=== PATIENT | male | born 1950 | race Caucasian/White ===

== ENCOUNTER 2020-09-20 09:08 | Observation (INO) | payer MEDICARE, SELFPAY ==
[2013-07-17 08:42] VITALS: BMI 37.3
[2020-09-20] VITALS (8 sets, daily range): BP systolic 125–152; BP diastolic 76–85; PULSE 66–84; RESP 16–20; TEMP 36.7–37; O2SAT 94–99; BMI 107.5; BMI 38.2
--- NOTE | 2020-09-20 07:50 | EKG12_ITS ---
Test Reason : IRREGULAR HR Blood Pressure : / mmHG Vent. Rate : 060 BPM Atrial Rate : 060 BPM P-R Int : 228 ms QRS Dur : 076 ms QT Int : 400 ms P-R-T Axes : 074 030 042 degrees QTc Int : 400 ms Sinus rhythm with 1st degree A-V block with Premature atrial complexes Otherwise normal ECG Confirmed by MICHELLE HODGE, JOHN ([id number]), rewrite editor LFAKITO CRUZ ([id number] on 09/22/2020 11:47:37 AM Referred By: RADHA Confirmed By:JOHN MARTINEZ MD
--- NOTE | 2020-09-20 09:21 | PCM.HP.STD ---
Problem List (1) Atypical chest discomfort Status: Acute (2) Diabetes mellitus type 2 in obese Status: Chronic (3) Hypertension Status: Chronic (4) Dyslipidemia Status: Chronic History of Present Illness Date of Admission: 09/20/20 Chief Complaint: Chest discomfort The patient is a 70 year old M is a direct admit from [facility] ED for chest discomfort. He describes chest discomfort as irregular heartbeat for last 2 weeks which is getting more frequent. Sometimes on standing up he feels dizzy. He denies change in the discomfort with regard to exertion or association with shortness of breath, syncope or fall. He describes chest discomfort as localized without radiation without precipitating, aggravating or relieving factor. No previous history of similar problem, heart disease or lung disease or stroke. 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 EKG tracing from pulmonary in ER shows PACs with compensatory pause. Twelve-lead EKG shows sinus rhythm with first-degree AV block with premature supraventricular complex at 67 bpm. SC interval 222 ms, QTC 405 ms. QRS 76 ms. High-sensitivity troponin negative. D-dimer thyroid 65 mildly elevated. CBC within normal limit. CMP within normal limit. Modified Wells criteria is 0 therefore PE unlikely. [] Past Medical History Past Medical History (Chronic Problems): Chronic Problems Diabetes mellitus type 2 in obese (Chronic) Hypertension (Chronic) Dyslipidemia (Chronic) Allergies No Known Allergies Allergy (Verified 07/10/13 10:09) Home Medications: Ambulatory Orders Medication Instructions Recorded Amlodipine [Norvasc] 10 mg PO DAILY 07/10/13 Ascorbic Acid [Vitamin C] 1,000 mg PO DAILY@0800 07/10/13 Atorvastatin Calcium [Lipitor] 20 mg PO QHS 07/10/13 Cosaminasu 2 tab PO BID 07/10/13 Flavoring Agent [Cinnamon] 1,000 mg PO DAILY 07/10/13 Folic Acid 1 mg PO BIDCM 07/10/13 Insulin Glargine [Lantus SoloStar 50 units SC QHS 07/10/13 Pen] Losartan Potassium [Cozaar] 100 mg PO DAILY 07/10/13 Methotrexate 15 mg PO Q7D 07/10/13 Multivitamins,Therapeutic 1 tablet PO DAILY 07/10/13 [Multivitamin] [place]-3 Fatty Acids/Fish Oil [Fish 1 each PO DAILY 07/10/13 Oil 1,000 mg Softgel] Tamsulosin HCl [Flomax] 0.4 mg PO DAILY 07/10/13 traMADol [Ultram (G)] 50 mg PO Q6H PRN PRN 07/10/13 Glimepiride [Amaryl] 4 mg PO BID 09/20/20 Magnesium 250 mg PO DAILY 09/20/20 Metformin HCl [Metformin HCl ER] 1,000 mg PO BID PRN PRN 09/20/20 Spironolactone [Aldactone] 25 mg PO DAILY 09/20/20 Smoking Status: Former smoker Tobacco Use: Cigarettes - *Family History Paternal History Items: - Maternal History Items: Heart Disease Sibling History Items: Heart Disease - 2 brothers of heart disease. Review of Systems Constitutional: Denies: Chills, Fever, Weight Change HEENT: Denies: Head Aches, Sinus Congestion, Sinus Drainage Cardiovascular: Reports: Chest Pressure, Palpitations. Denies: Chest Pain Respiratory: Denies: Cough, Shortness of breath at rest, Sputum production Gastrointestinal: Denies: Abdominal Pain, Nausea, Vomiting Genitourinary: Denies: Dysuria Musculoskeletal: Denies: Joint Pain, Joint Tenderness Skin: Denies: Rash, Wounds Neurological: Denies: Numbness, Tingling, Focal weakness Psychiatric: Denies: Anxiety, Depression, Homicidal Ideations, Suicidal Ideations Hematologic/ Lymphatic: Denies: Easy Bruising, Easy Bleeding VTE Information - Inpt Only VTE Present on Admission: No VTE Mechan Device Prophylaxis: None VTE Pharm Prophylaxis ordered?: Yes Patient Problems: Active and Suspected Problems Atypical chest discomfort (Acute) - Physical Exam Vitals/I&O's: Weight: 237 lb 1.6 oz Body Mass Index (BMI) 38.2 General: Alert, Oriented x3, Cooperative HEENT: Atraumatic, PERRLA, EOMI, Normocephalic Neck: Supple, No JVD, Negative Carotid Bruits Lungs: Clear to auscultation, Normal air movement, No rhonchi, No wheeze, No rales Cardiovascular: Regular rate, Normal S1, Normal S2, No murmurs, Irregular Rate - Supraventricular complex Abdomen: Bowel Sounds Present, Soft, Non Tender, Non-Distended Extremities: Capillary Refill Less than 3 Seconds, - - Mild chronic bilateral eating ankle edema Skin: No rashes, No breakdown Musculoskeletal: No Tenderness to Palpation of Joints or Extremities Lymphatic: No Cervical, Supraclavicular, or Inguinal Adenopathy Neurological: Cranial nerves II-XII grossly intact, Deep Tendon Reflexes 2+/4 and Symmetrical, Neuro grossly intact, Motor Exam 5/5 strength throughout Psych/Mental Status: Normal Affect, Appropriate Assessment/Plan All Active Problems Atypical chest discomfort (Acute) The patient is a 70 year old M is a direct admit from [facility] ED for chest discomfort. EKG tracing from pulmonary in ER shows PACs with compensatory pause. Twelve-lead EKG shows sinus rhythm with first-degree AV block with premature supraventricular complex at 67 bpm. SC interval 222 ms, QTC 405 ms. QRS 76 ms. High-sensitivity troponin negative. D-dimer thyroid 65 mildly elevated. CBC within normal limit. CMP within normal limit except elevated glucose. Modified Wells criteria is 0 therefore PE unlikely. SAMANTHA risk score 2 [] 1. Atypical chest discomfort with arrhythmia: Patient is being admitted in PCU directly from [facility] in ER. Serial troponin enzymes. 2D echo ordered. Treadmill nuclear stress tomorrow a.m. 2. Diabetes mellitus type 2: Glucose in BMP 153. Patient on glimepiride 4 mg twice daily continued with instruction not to hold prior to stress test. Hold Metformin. On insulin glargine 15 units subcu at bedtime daily. Acute exacerbation coverage to minoxidil. A1c tomorrow a.m. 3. Hypertension: Patient is on losartan and amlodipine continued. 4. Dyslipidemia: On atorvastatin 20 mg daily. Fasting profile tomorrow a.m. VT prophylaxis on Lovenox 40 mg subcu daily. OBSV E&M: [id number] Initial observation care L3
--- NOTE | 2020-09-20 09:25 | ECHOD_ITS ---
Reason For Study: Arrhythmia Procedure This was a 2D Doppler, Color Flow transthoracic echocardiogram. The exam was of adequate technical quality. Exam performed portable in patient room. Left Ventricle Normal LV size. Left ventricular systolic function is normal. The estimated ejection fraction is 60 %. Diastolic function is indeterminate. No regional wall motion abnormalities noted. Right Ventricle Normal RV size. Normal systolic function. Atria Normal left atrium. Normal right atrium. No doppler evidence for ASD. Mitral Valve There is no mitral annular calcification. Normal mitral valve. Trivial mitral valve insufficiency. Tricuspid Valve Normal tricuspid valve. Trivial tricuspid valve insufficiency. Aortic Valve Trisinus/trileaflet aortic valve. Normal aortic valve. Pulmonic Valve The pulmonic valve is not well visualized. Great Vessels Mild to moderately dilated aortic root. Pericardium/Pleural Trivial pericardial effusion. There are no echocardiographic indications of cardiac tamponade. MMode/2D Measurements & Calculations LVIDd: 4.3 cm IVSd: 1.2 cm Ao root diam: 4.5 cm LVIDs: 3.0 cm LVPWd: 0.86 cm FS: 30.7 % LAV(MOD-bp): 59.3 ml LA A4 area: 19.8 cm2 RA A4 area: 19.3 cm2 LAV(MOD-bp) Indexed: 27.6 ml/m2 LAV(MOD-sp2): 60.3 ml LAV(MOD-sp4): 52.8 ml Time Measurements MV dec time: 0.29 sec Doppler Measurements & Calculations MV E max wili: 58.9 cm/sec Lat Peak E' Wili: 5.9 cm/sec Med Peak E' Wili: 5.0 cm/sec MV A max wili: 92.4 cm/sec E/E' lat: 9.9 E/E' med: 11.9 MV E/A: 0.64 MV V2 max: 99.2 cm/sec MV P1/2t max wili: 67.4 cm/sec Ao V2 max: 120.0 cm/sec MV max P.9 mmHg MV P1/2t: 110.5 msec Ao max P.8 mmHg MV V2 mean: 49.7 cm/sec MV dec slope: 178.7 cm/sec2 MV mean P.2 mmHg MVA(P1/2t): 2.0 cm2 MV V2 VTI: 27.8 cm LV V1 max: 99.2 cm/sec PA V2 max: 83.8 cm/sec LV V1 max P.9 mmHg Interpretation Summary Left ventricular systolic function is normal. The estimated ejection fraction is 60 %. Trivial mitral valve insufficiency. Trivial tricuspid valve insufficiency. Mild to moderately dilated aortic root. Trivial pericardial effusion. There are no echocardiographic indications of cardiac tamponade. Diastolic function is indeterminate. Comment: Consider further evaluation of thoracic aortic anatomy with chest CT scan with IV contrast if clinically indicated. Ordering Physician: Rakesh Marie Performed By: Dayday De La Cruz RCS
[2020-09-20] MEDS: amLODIPine 10 MG Tablet PO (09:40)
[2020-09-20] MEDS: Spironolactone 25 MG Tablet PO (09:40)
[2020-09-20] MEDS: Folic Acid 1 MG Tablet PO ×2 (09:40→16:29)
[2020-09-20 09:45] LABS: Bedside Glucose 152 mg/dL (70-110)
[2020-09-20 10:25] LABS: Anion Gap 7 (5-15); BUN 21 mg/dL (7-18); BUN/Creat Ratio 19.4 RATIO (10-20); Calcium,Total 8.9 mg/dL (8.5-10.1); Chloride 105 mmol/L (98-107); Cholesterol 136 mg/dL (200); Creatinine, Serum 1.08 mg/dL (0.70-1.30); EST Glomerular Filtration Rate 71 mL/min (>60); Est Glom Filt Rate - Afr Amer 86 mL/min (>60); Estimated Creatinine Clearance 55.79 ml/min; Glucose 147 mg/dL (74-106); High Density Lipoprotein 49 mg/dL; Magnesium 2.1 mg/dL (1.6-2.6); Potassium 3.9 mmol/L (3.5-5.1); Sodium Level 137 mmol/L (136-145); Thyroid Stim Hormone (TSH) 1.39 uIU/mL (0.358-3.74); Triglycerides 122 mg/dL; Very Low Density Lipoprotein 24 mg/dL (5-40)
[2020-09-20] MEDS: Losartan Potassium 100 MG Tablet PO (10:29)
[2020-09-20] MEDS: Lactated Ringers 1,000 ML 100 ML IV (10:30)
[2020-09-20] MEDS: Glimepiride 4 MG Tablet PO ×2 (10:31→16:29)
[2020-09-20] MEDS: Insulin Lispro 100 UNIT/ML INSULN.PEN SC ×4 (10:32→21:09)
[2020-09-20] MEDS: Enoxaparin 40 MG/0.4 ML Syringe SC (12:15)
[2020-09-20 12:25] LABS: Bedside Glucose 267 mg/dL (70-110)
[2020-09-20] MEDS: Tamsulosin HCl 0.4 MG Capsule PO (16:29)
[2020-09-20 16:36] LABS: Bedside Glucose 227 mg/dL (70-110)
[2020-09-20] MEDS: Atorvastatin Calcium 20 MG Tablet PO (21:07)
[2020-09-20] MEDS: 0.9% Saline Lock 10 ML Syringe IV (21:10)
[2020-09-20 21:16] LABS: Bedside Glucose 222 mg/dL (70-110)
--- NOTE | 2020-09-20 23:07 | PCS.PANDOC ---
PANDEMIC DOCUMENTATION INITIATED: Date: 09/20/20 Time: 0540
[2020-09-21 02:51] VITALS: BP 131/80; PULSE 64; RESP 16; TEMP 36.5; O2SAT 94
[2020-09-21 03:34] VITALS: PULSE 61
--- NOTE | 2020-09-21 05:00 | EKG12_ITS ---
Test Reason : AM Blood Pressure : / mmHG Vent. Rate : 062 BPM Atrial Rate : 062 BPM P-R Int : 218 ms QRS Dur : 080 ms QT Int : 404 ms P-R-T Axes : 092 083 086 degrees QTc Int : 410 ms Sinus rhythm with 1st degree A-V block Septal infarct , age undetermined Abnormal ECG When compared with ECG of 20-SEP-2020 07:50, MANUAL COMPARISON REQUIRED, DATA IS UNCONFIRMED Confirmed by LOLA HODGE, JOSEFINA ([id number]), editor trade journal [employer] LINK ([id number]) on 09/26/2020 12:23:07 PM Referred By: DORIAN Confirmed By:CARLOS DAVILA MD
[2020-09-21] MEDS: Losartan Potassium 100 MG Tablet PO (06:20)
[2020-09-21] MEDS: Aspirin E.C. 81 MG Tablet PO (06:20)
[2020-09-21] MEDS: Folic Acid 1 MG Tablet PO (06:20)
[2020-09-21 06:30] LABS: Bedside Glucose 174 mg/dL (70-110)
[2020-09-21 06:37] VITALS: BP 141/76; PULSE 63; RESP 16; TEMP 36.6; O2SAT 99
[2020-09-21 06:57] VITALS: PULSE 67
[2020-09-21 07:07] LABS: Anion Gap 4 (5-15); BUN 21 mg/dL (7-18); BUN/Creat Ratio 17.4 RATIO (10-20); Calcium,Total 8.9 mg/dL (8.5-10.1); Chloride 106 mmol/L (98-107); Creatinine, Serum 1.21 mg/dL (0.70-1.30); EST Glomerular Filtration Rate 63 mL/min (>60); Est Glom Filt Rate - Afr Amer 76 mL/min (>60); Glucose 167 mg/dL (74-106); Phosphorus 3.7 mg/dL (2.5-4.9); Potassium 4.3 mmol/L (3.5-5.1); Sodium Level 139 mmol/L (136-145)
[2020-09-21 08:12] LABS: Hemoglobin A1c 8.5 % (3.8-5.6)
[2020-09-21 11:01] VITALS: BP 134/87; PULSE 68; RESP 18; TEMP 36.7; O2SAT 97
[2020-09-21] MEDS: Insulin Lispro 100 UNIT/ML INSULN.PEN SC (11:03)
[2020-09-21] MEDS: amLODIPine 10 MG Tablet PO (11:03)
[2020-09-21] MEDS: Spironolactone 25 MG Tablet PO (11:04)
[2020-09-21 11:10] LABS: Bedside Glucose 174 mg/dL (70-110)
--- NOTE | 2020-09-21 11:20 | DCINST_ITS ---
- Discharge Diagnoses Current Active Problems: Current Active and Chronic Problems Atypical chest discomfort (Acute) Diabetes mellitus type 2 in obese (Chronic) Hypertension (Chronic) Dyslipidemia (Chronic) You will use the following diet at home:: Calorie/Carbohydrate Controlled (specify 1200, 1400, etc) - Carb controlled diet, Cardiac Discharge Activity: Return to Normal Activity Weight Bearing Status: Weight bearing as tolerated Call your doctor if you observe: Fever of 101 or Higher, Numbness or Tingling, Change in Color, Inability to urinate, Inability to have a bowel movement, Shortness of breath, Dizziness, Fainting spells, Swelling in the ankles, Chest pain, Prolonged hiccoughing, Increased palpitations (irregular heartbeat), Calf discomfort, Uncontrolled pain Additional Instructions: Patient follows extension professor, next appointment on 09/23/2020 and also has appointment with swimming professor for psoriatic and rheumatoid arthritis on the same date. Advised to follow with PCP in 2 weeks and if patient gets frequent palpitation, near syncope, syncope, exertional chest pain/heaviness/angina or shortness of breath, advised to call PCP. Allergies/Adverse Reactions: Allergies No Known Allergies Allergy (Verified 07/10/13 10:09) Medications to take at Discharge Amlodipine [Norvasc] 10 mg PO DAILY 07/10/13 Ascorbic Acid [Vitamin C] 1,000 mg PO DAILY@0800 07/10/13 Atorvastatin Calcium [Lipitor] 20 mg PO QHS 07/10/13 Cosaminasu 2 tab PO BID 07/10/13 Flavoring Agent [Cinnamon] 1,000 mg PO DAILY 07/10/13 Folic Acid 1 mg PO BIDCM 07/10/13 Insulin Glargine [Lantus SoloStar Pen] 50 units SC QHS 07/10/13 Losartan Potassium [Cozaar] 100 mg PO DAILY 07/10/13 Methotrexate 15 mg PO Q7D 07/10/13 Multivitamins,Therapeutic [Multivitamin] 1 tablet PO DAILY 07/10/13 [place]-3 Fatty Acids/Fish Oil [Fish Oil 1,000 mg Softgel] 1 each PO DAILY 07/10/13 Tamsulosin HCl [Flomax] 0.4 mg PO DAILY 07/10/13 traMADol [Ultram] 50 mg PO Q6H PRN PRN 07/10/13 Glimepiride [Amaryl] 4 mg PO BID 09/20/20 Magnesium 250 mg PO DAILY 09/20/20 Metformin HCl [Metformin HCl ER] 1,000 mg PO BID PRN PRN 09/20/20 Spironolactone [Aldactone] 25 mg PO DAILY 09/20/20 Please follow up with your Primary Care Physician in: Primary care physician Test Results: Test results from this visit will be discussed in further detail at your follow- up appointment, if applicable.
--- NOTE | 2020-09-21 11:30 | CASEMGMT ---
GERARDO RODAS in to discuss HAYWOOD form with patient. GERARDO RODAS explained HAY[place]OD form with patient, patient voiced understanding. Patient signed HAY[place]OD form and filed in chart. Patient provided with copy of signed [place]AY[place]OD form. Patient had no further questions or concerns at this time.
--- NOTE | 2020-09-21 13:07 | STRESSREP ---
Stress Test Report Exercise myocardial perfusion stress test. 71-year-old male with a history of chest pain. Stress protocol: Resting EKG demonstrates normal sinus rhythm with a rate of 62 bpm normal intervals are noted resting blood pressure 152/82 mmHg. Patient exercised according to regular Benny protocol for total duration of 6 minutes. The maximum heart rate attained 129 bpm which was 87% of max impacted heart rate the maximum workload was 7 metabolic equivalents. At rest there were no ST or T wave changes noted to suggest ischemia at peak exercise upsloping ST changes were noted with no meet the criteria for ischemia. No clinical angina was noted. The resting blood pressure was 152/82 with a peak blood pressure 190/70 mmHg. The test was terminated due to the target heart rate being achieved. No chest pain was noted. The peak blood pressure was 190/70 which was an adequate response to exercise. Occasional premature ventricular complexes were noted. Myocardial perfusion protocol. 15.0 mCi of technetium 99m sestamibi was injected at rest. The patient exercised according to regular Benny protocol. At peak exercise 45.0 mCi of technetium 99m sestamibi was injected stress images were obtained stress and rest images were reconstructed and compared in the short axis vertical long horizontal long axis. Gated images were also obtained Perfusion SPECT analysis: Review of the stress images demonstrate normal uptake of tracer noted in all areas of the myocardium the resting images similar demonstrate normal uptake of tracer noted in all areas of the myocardium. No areas of reversibility are noted suggest ischemia no previous infarct is noted. Gated SPECT analysis: The gated ejection fraction is 72%. Conclusion: Normal exercise myocardial perfusion stress test at a moderate workload. Preserved ejection fraction.
--- NOTE | 2020-09-21 13:39 | PCM.DC.SUM ---
Discharge Date and Diagnosis - Problem List Patient Problems: Active and Suspected Problems Atypical chest discomfort (Acute) Date of Admission: 09/20/20 Date of Discharge: 09/21/20 - Primary Discharge Diagnosis Acute Problems: Active Problems Atypical chest discomfort (Acute) - Secondary Discharge Diagnosis Chronic Problems: Chronic Problems Diabetes mellitus type 2 in obese (Chronic) Hypertension (Chronic) Dyslipidemia (Chronic) Hospital Course and Treatment Imaging Results: 09/21/20 05:55 Nuclear Stress Test - Treadmil [NM] AM (NON MEDS) Summary of Care Provided: The patient is a 70 year old M is a direct admit from [facility] ED for chest discomfort. EKG tracing from pulmonary in ER shows PACs supraventricular complexes with compensatory pause. Twelve-lead EKG shows sinus rhythm with first-degree AV block with premature supraventricular complex at 67 bpm. [place] interval 222 ms, QTC 405 ms. QRS 76 ms. High-sensitivity troponin negative. D-dimer thyroid 65 mildly elevated. CBC within normal limit. CMP within normal limit except elevated glucose. Modified Wells criteria is 0 therefore PE unlikely. SAMANTHA risk score 2 1. Atypical chest pressure hospital due to PAC/supraventricular complexes: Patient was admitted in PCU. Serial troponin enzymes negative. 2D echo reported EF 60% with no significant valvular abnormality. Mild to moderately dilated aortic root, 4.5 cm. Furthermore, patient had treadmill stress test which reported no stress-induced ischemia or previous infarct. Patient was advised to follow-up with PCP for routine follow-up/surveillance of aortic root dilatation. Patient does not has congenital heart disease or bicuspid aortic valve. 2. Diabetes mellitus type 2 with hyperglycemia: Glucose in BMP 153. Patient on glimepiride 4 mg twice daily continued with instruction not to hold prior to stress test. Hold Metformin. On insulin glargine 15 units subcu at bedtime daily. A1c 8.5. Follow-up PCP for better control of glucose 3. Hypertension: Patient is on losartan and amlodipine continued. 4. Dyslipidemia: On atorvastatin 20 mg daily.Fasting profile within normal limit, LDL 63, TG 122. TSH normal. VT prophylaxis on Lovenox 40 mg subcu daily. Patient Problems: Active and Suspected Problems Atypical chest discomfort (Acute) Objective: Seen and examined. No chest pain, shortness of breath or palpitation. Telemetry shows occasional PACs/supraventricular complexes Physical exam General: Alert, Oriented x3, Cooperative, morbid obesity BMI 38.3 kg/m? HEENT: Atraumatic, PERRLA, EOMI, Normocephalic Oral: No Gingival or Mucosal Lesions/ Ulcerations Neck: Supple, No JVD, Negative Carotid Bruits Lungs: Air entry diminished in bilateral lung bases. No crepitation/rhonchi Cardiovascular: Occasional extra heartbeat. Regular rate, Regular Rhythm, Normal S1, Normal S2, No murmurs Abdomen: Bowel Sounds Present, Soft, Non Tender, Non-Distended : No renal angle tenderness. No suprapubic tenderness. Extremities: No edema, Capillary Refill Less than 3 Seconds Skin: No rashes, No breakdown Musculoskeletal: No Tenderness to Palpation of Joints or Extremities Neurological: Cranial nerves II-XII grossly intact, Deep Tendon Reflexes 2+/4 and Symmetrical, Neuro grossly intact Psych/Mental Status: Normal Affect, Appropriate. - Physical Exam Vitals/I&O's: Vital Signs Temp Pulse Resp BP Pulse Ox 98.1 F 68 18 134/87 H 97 09/21/20 11:01 09/21/20 11:01 09/21/20 11:01 09/21/20 11:01 09/21/20 11:01 Oxygen Delivery Method Room Air Weight: 237 lb 1.6 oz Body Mass Index (BMI) 38.2 Intake and Output for Last 24 Hours 09/19/20 09/20/20 09/21/20 23:59 23:59 23:59 Intake Total 2645 / 2945 500 / 500 Balance 2645 / 2945 500 / 500 Laboratory Results 09/20/20 12:13: POC Glucose 267 H 09/20/20 12:20: Troponin I < 0.015 09/20/20 15:22: Troponin I < 0.015 09/20/20 16:27: POC Glucose 227 H 09/20/20 21:05: POC Glucose 222 H 09/21/20 06:17: POC Glucose 174 H 09/21/20 06:30: Sodium 139, Potassium 4.3, Chloride 106, Carbon Dioxide 29.0, Anion Gap 4 L, BUN 21 H, Creatinine 1.21, Estim Creat Clear Calc 49.80, Est GFR (MDRD) Af Amer 76, Est GFR (MDRD) Non-Af 63, BUN/Creatinine Ratio 17.4, Glucose 167 H, Calcium 8.9, Phosphorus 3.7 09/21/20 06:30: Hemoglobin A1c 8.5 H 09/21/20 11:02: POC Glucose 174 H Current Medications Acetaminophen (Acetaminophen 325 Mg Tablet) 650 mg PO Q6H PRN PRN PRN Reason: Pain Score 1-10/Temp > 100.7 F Al Hydroxide/Mg Hydroxide (Mag Hydrox/Al Hydrox/Simeth 30 Ml Udc) 30 ml PO Q6H PRN PRN PRN Reason: Gastric Burning Amlodipine Besylate (Amlodipine 10 Mg Tablet) 10 mg PO DAILY [facility] Last Admin: 09/21/20 11:03 Dose: 10 mg Documented by: Aspirin (Aspirin E.C. 81 Mg Tablet) 81 mg PO DAILY@0800 [facility] Last Admin: 09/21/20 06:20 Dose: 81 mg Documented by: Atorvastatin Calcium (Atorvastatin Calcium 20 Mg Tablet) 20 mg PO QHS [facility] Last Admin: 09/20/20 21:07 Dose: 20 mg Documented by: Dextrose (Dextrose 50%-Water 25 Gm/50 Ml Disp.Syrin) 0 gm IV X1 PRN; Protocol PRN Reason: Hypoglycemia Enoxaparin Sodium (Enoxaparin 40 Mg/0.4 Ml Syringe) 40 mg SC DAILY [facility] Last Admin: 09/20/20 12:15 Dose: 40 mg Documented by: Folic Acid (Folic Acid 1 Mg Tablet) 1 mg PO BIDCM [facility] Last Admin: 09/21/20 06:20 Dose: 1 mg Documented by: Glimepiride (Glimepiride 4 Mg Tablet) 4 mg PO BIDCM [facility] Last Admin: 09/21/20 06:21 Dose: Not Given Documented by: Glucagon (Glucagon 1 Mg/Ml Syringe) 1 mg IM .X1 PRN PRN Reason: Hypoglycemia Sodium Chloride () 250 mls @ 15 mls/hr IV .[id number] PRN PRN Reason: Saline Flush Sodium Chloride () 250 mls @ 15 mls/hr IV .[id number] PRN PRN Reason: Additional IVPB Infusion Insulin Glargine (Insulin Glargine 100 Units/Ml Pen) 50 units SC QHS [facility] Last Admin: 09/20/20 21:07 Dose: 50 units Documented by: Insulin Human Lispro (Insulin Lispro 100 Unit/Ml Insuln.Pen) 0 unit SC ACHS [facility]; Protocol Last Admin: 09/21/20 11:03 Dose: 2 units Documented by: Losartan Potassium (Losartan Potassium 100 Mg Tablet) 100 mg PO DAILY [facility] Last Admin: 09/21/20 06:20 Dose: 100 mg Documented by: Melatonin (Melatonin 3 Mg Tablet) 3 mg PO QHS PRN PRN PRN Reason: INSOMNIA Morphine Sulfate (Morphine 2 Mg/Ml Syringe) 2 mg IV Q3H PRN PRN PRN Reason: Pain Score 6-10 Nitroglycerin (Nitroglycerin (Inpatient Use) 0.4 Mg Tab.Subl) 0.4 mg SUBLINGUAL Q5M PRN PRN Reason: CARDIAC/CHEST PAIN Oxycodone HCl (Oxycodone 5 Mg Tablet) 5 mg PO Q4H PRN PRN PRN Reason: Pain Score 4-5 Prochlorperazine Edisylate (Prochlorperazine 10 Mg/2 Ml Vial) 5 mg IV Q4H PRN PRN PRN Reason: Breakthrough Nausea/Vomiting Senna/Docusate Sodium (Senna/Docusate Sodium 1 Tablet) 2 tablet PO BID PRN PRN PRN Reason: Constipation Sodium Chloride (0.9% Saline Lock 10 Ml Syringe) 10 - 40 ml IV UD PRN PRN Reason: SALINE FLUSH Last Admin: 09/20/20 21:10 Dose: 10 ml Documented by: Spironolactone (Spironolactone 25 Mg Tablet) 25 mg PO DAILY [facility] Last Admin: 09/21/20 11:04 Dose: 25 mg Documented by: Tamsulosin HCl (Tamsulosin Hcl 0.4 Mg Capsule) 0.4 mg PO DAILY@1730 [facility] Last Admin: 09/20/20 16:29 Dose: 0.4 mg Documented by: Tramadol HCl (Tramadol 50 Mg Tablet) 50 mg PO Q6H PRN PRN PRN Reason: Pain 1-3 Discharge Activity: Return to Normal Activity Weight Bearing Status: Weight bearing as tolerated Call your doctor if you observe: Fever of 101 or Higher, Numbness or Tingling, Change in Color, Inability to urinate, Inability to have a bowel movement, Shortness of breath, Dizziness, Fainting spells, Swelling in the ankles, Chest pain, Prolonged hiccoughing, Increased palpitations (irregular heartbeat), Calf discomfort, Uncontrolled pain Home Medications: Medications to take at Discharge Amlodipine [Norvasc] 10 mg PO DAILY 07/10/13 Ascorbic Acid [Vitamin C] 1,000 mg PO DAILY@0800 07/10/13 Atorvastatin Calcium [Lipitor] 20 mg PO QHS 07/10/13 Cosaminasu 2 tab PO BID 07/10/13 Flavoring Agent [Cinnamon] 1,000 mg PO DAILY 07/10/13 Folic Acid 1 mg PO BIDCM 07/10/13 Insulin Glargine [Lantus SoloStar Pen] 50 units SC QHS 07/10/13 Losartan Potassium [Cozaar] 100 mg PO DAILY 07/10/13 Methotrexate 15 mg PO Q7D 07/10/13 Multivitamins,Therapeutic [Multivitamin] 1 tablet PO DAILY 07/10/13 [place]-3 Fatty Acids/Fish Oil [Fish Oil 1,000 mg Softgel] 1 each PO DAILY 07/10/13 Tamsulosin HCl [Flomax] 0.4 mg PO DAILY 07/10/13 traMADol [Ultram] 50 mg PO Q6H PRN PRN 07/10/13 Glimepiride [Amaryl] 4 mg PO BID 09/20/20 Magnesium 250 mg PO DAILY 09/20/20 Metformin HCl [Metformin HCl ER] 1,000 mg PO BID PRN PRN 09/20/20 Spironolactone [Aldactone] 25 mg PO DAILY 09/20/20 Please follow up with your Primary Care Physician in: Primary care physician Medical Necessity - Tobacco Use Smoking Status: Former smoker Tobacco Use: Cigarettes Meaningful Use Info Meaningful Use Diagnoses (Choose all that apply): None applicable OBSV E&M: 37178 Observation care discharge
--- NOTE | 2020-09-21 13:43 | CASEMGMT ---
Pt provided with [facility] pamphlet per request at this time. Pt declines need for any further resources at this time. Pepper CARRILLO CM
--- NOTE | 2020-09-21 14:51 | PHA.DC.MR ---
Pharmacy Service has performed discharge medication reconciliation for this patient. The patient's discharge medication list was reviewed for discrepancies and discrepancies were resolved. Home Medications Amlodipine [Norvasc] 10 mg PO DAILY 07/10/13 Ascorbic Acid [Vitamin C] 1,000 mg PO DAILY@0800 07/10/13 Atorvastatin Calcium [Lipitor] 20 mg PO QHS 07/10/13 Cosaminasu 2 tab PO BID 07/10/13 Flavoring Agent [Cinnamon] 1,000 mg PO DAILY 07/10/13 Folic Acid 1 mg PO BIDCM 07/10/13 Insulin Glargine [Lantus SoloStar Pen] 50 units SC QHS 07/10/13 Losartan Potassium [Cozaar] 100 mg PO DAILY 07/10/13 Methotrexate 15 mg PO Q7D 07/10/13 Multivitamins,Therapeutic [Multivitamin] 1 tablet PO DAILY 07/10/13 [place]-3 Fatty Acids/Fish Oil [Fish Oil 1,000 mg Softgel] 1 each PO DAILY 07/10/13 Tamsulosin HCl [Flomax] 0.4 mg PO DAILY 07/10/13 traMADol [Ultram] 50 mg PO Q6H PRN PRN 07/10/13 Glimepiride [Amaryl] 4 mg PO BID 09/20/20 Magnesium 250 mg PO DAILY 09/20/20 Metformin HCl [Metformin HCl ER] 1,000 mg PO BID PRN PRN 09/20/20 Spironolactone [Aldactone] 25 mg PO DAILY 09/20/20
== END 2020-09-21 11:22 | disposition home or self-care (01) ==
PROVIDERS: Admitting Provider Family Medicine; Visit Provider Internal Medicine
DX: R07.89 Other chest pain (principal); I10 Essential (primary) hypertension; E78.5 Hyperlipidemia, unspecified; E11.9 Type 2 diabetes mellitus without complications; R42 Dizziness and giddiness; I49.1 Atrial premature depolarization; I44.0 Atrioventricular block, first degree; Z87.891 Personal history of nicotine dependence; Z79.899 Other long term (current) drug therapy; Z79.84 Long term (current) use of oral hypoglycemic drugs; Z68.38 Body mass index [BMI] 38.0-38.9, adult; E11.65 Type 2 diabetes mellitus with hyperglycemia
CPT/HCPCS: 36415; 78452; 80048; 80061; 82962; 83036; 83735; 84100; 84443; 84484; 93005; 93017; 93306; 96360; 96361; 96372; 99218; A9500; J7120; Q9957; A4216; G0378